=== PATIENT | female | born 1980 | race Caucasian/White ===

== ENCOUNTER 2018-03-25 12:38 | Inpatient (IN) | payer BC ==
[~2018-03-25] VITALS: Ht 154.9 cm; Wt 72.2 kg
[~2018-03-25 12:38] MED LIST: CEFAZOLIN 1,000 MG ONE; EPHEDRINE 50 MG/ML, 1ML ONE; PHENYLEPHRINE 10 MG/ML ONE
[2018-03-25] MEDS ORDERED: LACTATED RINGERS 1,000 ML IVBOLUS ONE ×2 (13:00→14:30)
[2018-03-25] MEDS: LACTATED RINGERS 1,000 ML IV SCH ×5 (13:00→22:28)
[2018-03-25 13:03] LABS: BASOPHILS # (AUTO) 0.05 x10^3/uL (0-0.1); BASOPHILS % (AUTO) 1 % (0-1); EOSINOPHILS # (AUTO) 0.06 x10^3/uL (0-0.4); EOSINOPHILS % (AUTO) 1 % (1-7); LYMPHOCYTES # (AUTO) 1.54 x10^3/uL (1-3.4); LYMPHOCYTES % (AUTO) 16 % (22-44); MD NO; MEAN CORPUSCULAR HEMOGLOBIN 27.7 pg (27.0-34.8); MEAN CORPUSCULAR HGB CONC 33.5 g/dL (32.4-35.8); MEAN CORPUSCULAR VOLUME 82.6 fL (80-100); MEAN PLATELET VOLUME 9.3 fL (7.4-10.4); MONOCYTES % (AUTO) 5 % (2-9); NEUTROPHILS # (AUTO) 7.31 x10^3/uL (1.8-6.8); NEUTROPHILS % (AUTO) 77 % (42-75); PLATELET COUNT 184 x10^3/uL (130-400); RED BLOOD COUNT 4.35 x10^6/uL (3.82-5.3); RED CELL DISTRIBUTION WIDTH 13.7 % (9.6-15.2)
[2018-03-25 13:14] LABS: ALANINE AMINOTRANSFERASE 22 U/L (12-78); ALBUMIN 2.7 g/dL (3.4-5.0); ANION GAP 9 mmol/L (5-15); CALCIUM 8.7 mg/dL (8.5-10.1); CHLORIDE 108 mmol/L (98-107); CREATININE 0.65 mg/dL (0.55-1.02)
[2018-03-25 13:20] LABS: ALKALINE PHOSPHATASE 121 U/L (45-117); BILIRUBIN,TOTAL 0.2 mg/dL (0.2-1.0); TOTAL PROTEIN 6.8 g/dL (6.4-8.2)
[2018-03-25 13:22] VITALS: BP 134/72
[2018-03-25 13:31] LABS: MICROSCOPIC INDICATED
[2018-03-25] MEDS: OXYTOCIN 30U/ 0.9% NaCL 500ML 500 ML IV SCH ×2 (14:28→20:14)
[2018-03-25] MEDS ORDERED: OXYTOCIN 30U/ 0.9% NaCL 500ML 500 ML ONE (15:01)
[2018-03-25] MEDS ORDERED: NEWBORN KIT ONE (15:02)
[2018-03-25] MEDS ORDERED: SODIUM CITRATE/CITRIC ACID 30 ML UDC ONE (15:55)
[2018-03-25] MEDS ORDERED: METOCLOPRAMIDE 5 MG/ML, 2ML ONE (15:55)
[2018-03-25] MEDS ORDERED: METOCLOPRAMIDE 5 MG/ML, 2ML IV ONE (16:00)
[2018-03-25] MEDS ORDERED: SODIUM CITRATE/CITRIC ACID 30 ML UDC PO ONE (16:00)
[2018-03-25] MEDS ORDERED: ACETAMINOPHEN 500 MG TABLET ONE (16:36)
[2018-03-25] MEDS ORDERED: morphine SULFATE/PF 0.5 MG/ML, 10ML ONE (16:38)
[2018-03-25] MEDS ORDERED: ACETAMINOPHEN 500 MG TABLET PO ONE (17:00)
[2018-03-25] MEDS ORDERED: KETOROLAC 30 MG/1 ML ONE (19:00)
[2018-03-25] MEDS: KETOROLAC 30 MG/1 ML IV SCH (19:00)
[2018-03-25] MEDS ORDERED: HYDROcodone/APAP 7.5-325MG/15ML UDC ONE (19:21)
[2018-03-25] MEDS ORDERED: METHYLERGONOVINE 0.2 MG/ML IM PRN (20:30)
[2018-03-25] MEDS ORDERED: morphine SULFATE 10 MG/ML, 1ML IVPush PRN (20:30)
[2018-03-25] MEDS ORDERED: MISOPROSTOL 200 MCG TABLET PR PRN (20:30)
[2018-03-25] MEDS ORDERED: CARBOPROST TROMETHAMINE 250 MCG/ML, 1ML IM PRN (20:30)
[2018-03-25] MEDS ORDERED: ONDANSETRON 2MG/ML, 2ML IV PRN (20:30)
[2018-03-25 20:50] VITALS: BP 127/77
[2018-03-25] MEDS ORDERED: ONDANSETRON 2MG/ML, 2ML ONE (21:12)
[2018-03-25 23:55] VITALS: BP 113/70
[2018-03-26] MEDS ORDERED: CEFAZOLIN PMX 2GM/50ML 50 ML IV SCH
[2018-03-26] MEDS: OXYTOCIN 30U/ 0.9% NaCL 500ML 500 ML IV SCH ×5 (00:28→20:28)
[2018-03-26] MEDS: KETOROLAC 30 MG/1 ML IV SCH ×4 (01:11→19:44)
[2018-03-26 03:40] VITALS: BP 109/70
[2018-03-26] MEDS: HYDROcodone/APAP 5/325 TABLET PO PRN ×5 (04:42→18:15)
[2018-03-26] MEDS: LACTATED RINGERS 1,000 ML IV SCH ×4 (05:00→16:14)
[2018-03-26 05:33] LABS: BASOPHILS # (AUTO) 0.04 x10^3/uL (0-0.1); BASOPHILS % (AUTO) 0 % (0-1); EOSINOPHILS # (AUTO) 0.03 x10^3/uL (0-0.4); EOSINOPHILS % (AUTO) 0 % (1-7); LYMPHOCYTES # (AUTO) 1.35 x10^3/uL (1-3.4); LYMPHOCYTES % (AUTO) 16 % (22-44); MD NO; MEAN CORPUSCULAR HEMOGLOBIN 27.9 pg (27.0-34.8); MEAN CORPUSCULAR HGB CONC 33.6 g/dL (32.4-35.8); MEAN CORPUSCULAR VOLUME 82.8 fL (80-100); MEAN PLATELET VOLUME 9.4 fL (7.4-10.4); MONOCYTES % (AUTO) 6 % (2-9); NEUTROPHILS # (AUTO) 6.71 x10^3/uL (1.8-6.8); NEUTROPHILS % (AUTO) 78 % (42-75); PLATELET COUNT 139 x10^3/uL (130-400); RED CELL DISTRIBUTION WIDTH 13.8 % (9.6-15.2)
[2018-03-26 07:50] VITALS: BP 114/69
[2018-03-26] MEDS: DOCUSATE 100 MG CAPSULE PO PRN ×2 (09:56→19:44)
[2018-03-26] MEDS: PRENATAL VIT/IRON/FA 1 EACH TABLET PO SCH (09:56)
[2018-03-26 12:15] VITALS: BP 103/69
[2018-03-26 16:55] VITALS: BP 105/71
[2018-03-26] MEDS ORDERED: RHOGAM FROM BLOOD BANK 1 NOTE EA IM/IV ONE (17:00)
[2018-03-26] MEDS: FERROUS SULFATE 325 MG TABLET PO SCH (19:44)
[2018-03-26 20:20] VITALS: BP 104/69
[2018-03-27] MEDS: HYDROcodone/APAP 5/325 TABLET PO PRN ×2 (00:44→20:44)
[2018-03-27] MEDS: KETOROLAC 30 MG/1 ML IV SCH ×3 (02:00→14:39)
[2018-03-27] MEDS: LACTATED RINGERS 1,000 ML IV SCH ×3 (02:14→22:14)
[2018-03-27] MEDS: OXYTOCIN 30U/ 0.9% NaCL 500ML 500 ML IV SCH ×5 (02:14→22:14)
[2018-03-27] MEDS: PRENATAL VIT/IRON/FA 1 EACH TABLET PO SCH (08:29)
[2018-03-27] MEDS: FERROUS SULFATE 325 MG TABLET PO SCH ×2 (08:29→20:45)
[2018-03-27] MEDS: DOCUSATE 100 MG CAPSULE PO PRN ×2 (08:29→20:45)
[2018-03-27 08:50] VITALS: BP 120/74
[2018-03-27 18:07] LABS: BASOPHILS # (AUTO) 0.11 x10^3/uL (0-0.1); BASOPHILS % (AUTO) 1 % (0-1); EOSINOPHILS # (AUTO) 0.18 x10^3/uL (0-0.4); EOSINOPHILS % (AUTO) 2 % (1-7); LYMPHOCYTES # (AUTO) 1.37 x10^3/uL (1-3.4); LYMPHOCYTES % (AUTO) 14 % (22-44); MD NO; MEAN CORPUSCULAR HEMOGLOBIN 28.3 pg (27.0-34.8); MEAN CORPUSCULAR HGB CONC 33.6 g/dL (32.4-35.8); MEAN CORPUSCULAR VOLUME 84.3 fL (80-100); MONOCYTES # (AUTO) 0.64 x10^3/uL (0.2-0.8); MONOCYTES % (AUTO) 6 % (2-9); NEUTROPHILS # (AUTO) 7.74 x10^3/uL (1.8-6.8); NEUTROPHILS % (AUTO) 77 % (42-75); PLATELET COUNT 172 x10^3/uL (130-400); RED BLOOD COUNT 3.48 x10^6/uL (3.82-5.3); RED CELL DISTRIBUTION WIDTH 14.1 % (9.6-15.2)
[2018-03-27 20:40] VITALS: BP 130/83
[2018-03-27] MEDS: IBUPROFEN 600 MG TABLET PO PRN (20:44)
[2018-03-28] MEDS: OXYTOCIN 30U/ 0.9% NaCL 500ML 500 ML IV SCH ×2 (02:28→07:10)
[2018-03-28] MEDS: HYDROcodone/APAP 5/325 TABLET PO PRN (02:44)
[2018-03-28] MEDS: IBUPROFEN 600 MG TABLET PO PRN ×2 (02:44→09:55)
[2018-03-28] MEDS: LACTATED RINGERS 1,000 ML IV SCH (07:10)
[2018-03-28 07:40] VITALS: BP 112/76
[2018-03-28] MEDS: DOCUSATE 100 MG CAPSULE PO PRN (08:32)
[2018-03-28] MEDS: PRENATAL VIT/IRON/FA 1 EACH TABLET PO SCH (08:32)
[2018-03-28] MEDS: FERROUS SULFATE 325 MG TABLET PO SCH (08:32)
[2018-03-28] MEDS ORDERED: DOCU-131 PO (09:36)
[2018-03-28] MEDS ORDERED: IBUP-1222 PO (09:36)
[2018-03-28] MEDS ORDERED: HYDR-3240 PO (09:37)
[2018-03-28] MEDS ORDERED: FERR325T23 PO (09:38)
== END 2018-03-28 10:20 | disposition home or self-care (01) | DRG 766 ==
LOC: LDOP 12:38 → LDIP 14:28 → 2NW 20:00
PROVIDERS: ADMIT Obstetrics & Gynecology; ATTEND Obstetrics & Gynecology
PROC: 10D00Z1 Extraction of Products of Conception, Low, Open Approach (ICD-10-PCS; principal; 2018-03-26)
DX: O34.211 Maternal care for low transverse scar from previous cesarean delivery (principal); O99.02 Anemia complicating childbirth; D64.9 Anemia, unspecified; Z3A.38 38 weeks gestation of pregnancy; Z37.0 Single live birth
CPT/HCPCS: 36415; 80053; 81001; 82570; 84156; 84550; 85025; 85461; 86850; 86900; J0690; J1885; J2274; J2405; J2790; J2370; J2765; J7120

== ENCOUNTER → 2020-06-22 | Outpatient (CLI) | payer BC ==
[~2020-06-22] MED LIST changes: -CEFAZOLIN 1,000 MG ONE; +DOCU-131 PO; -EPHEDRINE 50 MG/ML, 1ML ONE; +FERR325T23 PO; +HYDR-3240 PO; +IBUP-1222 PO; -PHENYLEPHRINE 10 MG/ML ONE
== END | disposition home or self-care (01) ==
LOC: STAR 10:08
PROVIDERS: ATTEND Obstetrics & Gynecology
DX: Z01.812 Encounter for preprocedural laboratory examination (principal); Z20.828 Contact with and (suspected) exposure to other viral communicable diseases
CPT/HCPCS: 36415; 87635

== ENCOUNTER 2020-06-28 02:48 | Inpatient (IN) | payer BC ==
[~2020-06-28] VITALS: Ht 154.9 cm; Wt 77.7 kg
[2020-06-28] MEDS ORDERED: OXYTOCIN 30U/ 0.9% NaCL 500ML 500 ML ONE (05:44)
[2020-06-28] MEDS ORDERED: METOCLOPRAMIDE 5 MG/ML, 2ML ONE (05:44)
[2020-06-28] MEDS ORDERED: NEWBORN KIT ONE (05:44)
[2020-06-28 06:00] VITALS: BP 132/80
[2020-06-28] MEDS ORDERED: LACTATED RINGERS 1,000 ML IVBOLUS ONE (06:00)
[2020-06-28] MEDS ORDERED: METOCLOPRAMIDE 5 MG/ML, 2ML IV ONE (06:00)
[2020-06-28] MEDS ORDERED: SODIUM CITRATE/CITRIC ACID 30 ML UDC PO ONE (06:00)
[2020-06-28 06:06] VITALS: BP 132/80
[2020-06-28 06:16] LABS: BASOPHILS # (AUTO) 0.03 x10^3/uL (0-0.1); BASOPHILS % (AUTO) 0 % (0-1); EOSINOPHILS % (AUTO) 1 % (1-7); LYMPHOCYTES # (AUTO) 1.76 x10^3/uL (1-3.4); LYMPHOCYTES % (AUTO) 19 % (22-44); MD NO; MEAN CORPUSCULAR HEMOGLOBIN 29.4 pg (27.0-34.8); MEAN CORPUSCULAR HGB CONC 33.2 g/dL (32.4-35.8); MEAN PLATELET VOLUME 9.5 fL (7.4-10.4); MONOCYTES # (AUTO) 0.56 x10^3/uL (0.2-0.8); MONOCYTES % (AUTO) 6 % (2-9); NEUTROPHILS % (AUTO) 74 % (42-75); PLATELET COUNT 154 x10^3/uL (130-400); RED BLOOD COUNT 4.62 x10^6/uL (3.82-5.3); RED CELL DISTRIBUTION WIDTH 17.6 % (9.6-15.2)
[2020-06-28] MEDS ORDERED: FENTANYL PF 100 MCG/2ML ONE (07:12)
[2020-06-28] MEDS ORDERED: CEFAZOLIN 1,000 MG ONE (07:12)
[2020-06-28] MEDS ORDERED: ONDANSETRON 2MG/ML, 2ML ONE (07:12)
[2020-06-28] MEDS ORDERED: OXYTOCIN 10 UNITS/ML, 1ML ONE (07:12)
[2020-06-28] MEDS ORDERED: HYDROmorphone 2 MG/ML, 1ML ONE (07:12)
[2020-06-28] MEDS ORDERED: MISOPROSTOL 200 MCG TABLET ONE (07:19)
[2020-06-28] MEDS: LACTATED RINGERS 1,000 ML IV SCH ×5 (07:31→21:56)
[2020-06-28] MEDS ORDERED: EPHEDRINE 50 MG/ML, 1ML ONE (07:51)
[2020-06-28] MEDS ORDERED: KETOROLAC 30 MG/1 ML ONE (07:57)
[2020-06-28] MEDS ORDERED: ONDANSETRON 2MG/ML, 2ML IV PRN (08:00)
[2020-06-28] MEDS: KETOROLAC 30 MG/1 ML IV SCH ×3 (08:00→19:49)
[2020-06-28] MEDS ORDERED: MEPERIDINE/PF 100 MG/ML IVPush PRN (08:00)
[2020-06-28] MEDS ORDERED: CARBOPROST TROMETHAMINE 250 MCG/ML, 1ML IM PRN (08:00)
[2020-06-28] MEDS ORDERED: METHYLERGONOVINE 0.2 MG/ML IM PRN (08:00)
[2020-06-28] MEDS ORDERED: OXYcodone/APAP 5/325MG TABLET PO PRN (08:00)
[2020-06-28] MEDS ORDERED: MISOPROSTOL 200 MCG TABLET PR PRN (08:00)
[2020-06-28] MEDS ORDERED: IBUPROFEN 600 MG TABLET PO PRN (08:00)
[2020-06-28] MEDS ORDERED: OXYcodone IR 5MG TABLET PO PRN (08:00)
[2020-06-28] MEDS ORDERED: MORPHINE SULFATE 4 MG/ML, 1ML IVPush PRN (08:00)
[2020-06-28] MEDS: OXYTOCIN 30U/ 0.9% NaCL 500ML 500 ML IV SCH ×2 (08:50→17:31)
[2020-06-28] MEDS: PRENATAL VIT/IRON/FA 1 EACH TABLET PO SCH (09:00)
[2020-06-28 10:56] VITALS: BP 128/81
[2020-06-28] MEDS: MEPERIDINE/PF 50 MG/ML IM PRN ×2 (13:01→23:21)
[2020-06-28 15:00] VITALS: BP 114/69
[2020-06-28 19:20] VITALS: BP 130/80
[2020-06-28] MEDS ORDERED: CALCIUM CARBONATE 500 MG TAB.CHEW ONE (19:33)
[2020-06-28] MEDS: SIMETHICONE 80 MG CHEW TAB PO PRN (19:39)
[2020-06-28] MEDS: DOCUSATE 100 MG CAPSULE PO PRN (19:39)
[2020-06-28] MEDS: CALCIUM CARBONATE 500 MG TAB.CHEW PO PRN (19:39)
[2020-06-29] MEDS: KETOROLAC 30 MG/1 ML IV SCH ×4 (02:06→19:49)
[2020-06-29 02:17] VITALS: BP 121/74
[2020-06-29] MEDS: OXYTOCIN 30U/ 0.9% NaCL 500ML 500 ML IV SCH ×2 (03:31→21:14)
[2020-06-29] MEDS: LACTATED RINGERS 1,000 ML IV SCH ×4 (03:31→21:15)
[2020-06-29 07:35] VITALS: BP 124/81
[2020-06-29] MEDS: PRENATAL VIT/IRON/FA 1 EACH TABLET PO SCH (07:45)
[2020-06-29] MEDS: SIMETHICONE 80 MG CHEW TAB PO PRN ×2 (07:45→13:46)
[2020-06-29] MEDS: CALCIUM CARBONATE 500 MG TAB.CHEW PO PRN (07:45)
[2020-06-29 07:51] LABS: BASOPHILS # (AUTO) 0.03 x10^3/uL (0-0.1); BASOPHILS % (AUTO) 0 % (0-1); EOSINOPHILS # (AUTO) 0.06 x10^3/uL (0-0.4); EOSINOPHILS % (AUTO) 1 % (1-7); LYMPHOCYTES # (AUTO) 0.98 x10^3/uL (1-3.4); LYMPHOCYTES % (AUTO) 9 % (22-44); MD NO; MEAN CORPUSCULAR HEMOGLOBIN 29.1 pg (27.0-34.8); MEAN CORPUSCULAR HGB CONC 32.7 g/dL (32.4-35.8); MEAN PLATELET VOLUME 9.1 fL (7.4-10.4); MONOCYTES # (AUTO) 0.64 x10^3/uL (0.2-0.8); MONOCYTES % (AUTO) 6 % (2-9); NEUTROPHILS # (AUTO) 9.06 x10^3/uL (1.8-6.8); NEUTROPHILS % (AUTO) 84 % (42-75); PLATELET COUNT 132 x10^3/uL (130-400); RED BLOOD COUNT 4.14 x10^6/uL (3.82-5.3); RED CELL DISTRIBUTION WIDTH 16.8 % (9.6-15.2)
[2020-06-29] MEDS ORDERED: RHOGAM FROM BLOOD BANK 1 NOTE EA IM/IV ONE (19:30)
[2020-06-29] MEDS: DOCUSATE 100 MG CAPSULE PO PRN (19:49)
[2020-06-29 19:55] VITALS: BP 131/80
[2020-06-30] MEDS: KETOROLAC 30 MG/1 ML IV SCH (02:10)
[2020-06-30] MEDS: LACTATED RINGERS 1,000 ML IV SCH ×2 (07:31→09:31)
[2020-06-30 07:43] VITALS: BP 117/79
[2020-06-30] MEDS: SIMETHICONE 80 MG CHEW TAB PO PRN (08:24)
[2020-06-30] MEDS: DOCUSATE 100 MG CAPSULE PO PRN (08:24)
[2020-06-30] MEDS: PRENATAL VIT/IRON/FA 1 EACH TABLET PO SCH (09:00)
[2020-06-30] MEDS ORDERED: HYDROcodone/APAP 5/325 TABLET PO PRN ×2 (09:30)
[2020-06-30] MEDS: OXYTOCIN 30U/ 0.9% NaCL 500ML 500 ML IV SCH (09:31)
== END 2020-06-30 11:50 | disposition home or self-care (01) | DRG 785 ==
LOC: LDIP 05:30 → 2NW 10:48
PROVIDERS: ADMIT Obstetrics & Gynecology; ATTEND Obstetrics & Gynecology
PROC: 10D00Z1 Extraction of Products of Conception, Low, Open Approach (ICD-10-PCS; principal; 2020-06-28)
PROC: 0UB70ZZ Excision of Bilateral Fallopian Tubes, Open Approach (ICD-10-PCS; 2020-06-28)
PROC: 3E0234Z Introduction of Serum, Toxoid and Vaccine into Muscle, Percutaneous Approach (ICD-10-PCS; 2020-06-29)
DX: O34.211 Maternal care for low transverse scar from previous cesarean delivery (principal); Z37.0 Single live birth; Z3A.39 39 weeks gestation of pregnancy; Z88.8 Allergy status to other drugs, medicaments and biological substances
CPT/HCPCS: 36415; 85025; 85461; 86592; 86850; 86900; 88302; 93005; G0378; J0690; J1170; J1885; J2175; J2405; J2790; J3010; J2590; J2765; J7120